=== PATIENT | female | born 1945 | race Caucasian/White ===

== ENCOUNTER 2016-10-12 21:53 | Emergency (ER) | payer MEDICARE, OTHER ==
[~2016-10-12] VITALS: Ht 167.6 cm; Wt 51.3 kg
[~2016-10-12 21:53] MED LIST: ESTR1 PO; LEVO50TA4 PO; LEVO75TA3 PO; METH4TAB6 PO
[2016-10-12 21:55] VITALS: BP 165/72; PULSE 81; RESP 16; TEMP 97.8; O2SAT 96
[2016-10-12] MEDS ORDERED: HYDROCORTISONE SOD SUCCINATE 100 MG VIAL IV PUSH ONE (22:30)
[2016-10-12 23:03] LABS: AUTOMATED NEUTROPHIL # 10.7 TH/MM3 (1.8-7.7); BASOPHIL % 0.4 % (0.0-2.0); EOSINOPHIL # 0.1 TH/MM3 (0-0.4); EOSINOPHIL % 0.5 % (0.0-4.0); HEMATOCRIT 42.9 % (35.0-46.0); HEMO FLAGS DIFF FINAL; MEAN CELL VOLUME 90.4 FL (80.0-100.0); MEAN CORPUSCULAR HEMOGLOBIN 30.9 PG (27.0-34.0); MEAN CORPUSCULAR HGB CONC 34.2 % (32.0-36.0); MONO % 2.8 % (0.0-8.0); NEUT % 88.3 % (16.0-70.0); PLATELET COUNT 368 TH/MM3 (150-450); RED BLOOD COUNT 4.75 MIL/MM3 (4.00-5.30); RED CELL DISTRIBUTION WIDTH 12.6 % (11.6-17.2); WHITE BLOOD COUNT 12.1 TH/MM3 (4.0-11.0)
--- NOTE | 2016-10-12 23:04 | PD ---
HPI . Adrenal crisis Chief Complaint: Abnormal Results Time Seen by Provider: 22:22 Travel History International Travel<30 days: No Contact w/Intl Traveler<30days: No Traveled to known affect area: No History of Present Illness HPI The patient presents with the chief complaint of adrenal crisis. She states that she's been feeling poorly for about a year. She states that she saw her primary care provider today diagnosed adrenal crisis and gave her a Medrol Dosepak. She is supposed to start the Medrol Dosepak tomorrow. She states she was feeling so poorly tonight she decided to come to the emergency department. She states that she was told that she could come here and get a shot. The patient reports that she feels weak and dizzy. She has tingling in her hands and feet. She has "internal shakes." PFSH Past Medical History Arthritis: Yes Diminished Hearing: No Thyroid Disease: Yes (hypo) Influenza Vaccination: Yes ?: Not : 0 Past Surgical History Hysterectomy: Yes Tonsillectomy: Yes Social History Alcohol Use: No Tobacco Use: No (QUIT 1986) Substance Use: No Allergies-Medications (Allergen,Severity, Reaction): Coded Allergies: Codeine (Verified Allergy, Severe, Nausea/Vomiting, 10/12/16) Levaquin (Verified Allergy, Unknown, unknown, 12/17/15) Reported Meds & Prescriptions Reported Meds & Active Scripts Active Reported Levothyroxine 75 mcg (Levothyroxine Sodium) 75 Mcg Tab 75 Mcg PO MON, TUE, TUE Levothyroxine 50 mcg (Levothyroxine Sodium) 50 Mcg Tab 50 Mcg PO ,,TUE Estrace (Estradiol) 1 Mg Tab 1 Mg PO DAILY Medrol 4 Mg Tab (Methylprednisolone) 4 Mg Tab 4 Mg PO DAILY Review of Systems Except as stated in HPI: all other systems reviewed are Neg General / Constitutional: No: Fever, Chills Neurologic: Positive: Weakness, Paresthesia Psychiatric: Positive: Anxiety Physical Exam Narrative GENERAL: Awake and alert and in no acute distress. SKIN: Warm and dry. HEAD: Atraumatic. Normocephalic. EYES: Pupils equal and round. Extraocular movements are intact. ENT: No nasal bleeding or discharge. Mucous membranes pink and moist. NECK: Trachea midline. Neck is supple. CARDIOVASCULAR: Regular rate and rhythm. Heart sounds are normal. RESPIRATORY: No accessory muscle use. GASTROINTESTINAL: Abdomen soft, non-tender, nondistended. MUSCULOSKELETAL: No obvious deformities. No edema. NEUROLOGICAL: Awake and alert. No obvious cranial nerve deficits. Motor grossly within normal limits. Normal speech. PSYCHIATRIC: Appropriate mood and affect; insight and judgment poor. Data Data Last Documented VS Vital Signs Date Time Temp Pulse Resp B/P Pulse Ox O2 Delivery O2 Flow Rate FiO2 10/12/16 21:55 97.8 81 16 165/72 96 Orders Complete Blood Count With Diff (10/12/16 22:22) Basic Metabolic Panel (Bmp) (10/12/16 22:22) ^ Saline Lock (10/12/16 22:22) Hydrocortisone Inj (Solucortef Inj) (10/12/16 22:30) Labs Laboratory Tests Test 10/12/16 22:50 White Blood Count 12.1 TH/MM3 Red Blood Count 4.75 MIL/MM3 Hemoglobin 14.7 GM/DL Hematocrit 42.9 % Mean Corpuscular Volume 90.4 FL Mean Corpuscular Hemoglobin 30.9 PG Mean Corpuscular Hemoglobin 34.2 % Concent Red Cell Distribution Width 12.6 % Platelet Count 368 TH/MM3 Mean Platelet Volume 7.3 FL Neutrophils (%) (Auto) 88.3 % Lymphocytes (%) (Auto) 8.0 % Monocytes (%) (Auto) 2.8 % Eosinophils (%) (Auto) 0.5 % Basophils (%) (Auto) 0.4 % Neutrophils # (Auto) 10.7 TH/MM3 Lymphocytes # (Auto) 1.0 TH/MM3 Monocytes # (Auto) 0.3 TH/MM3 Eosinophils # (Auto) 0.1 TH/MM3 Basophils # (Auto) 0.0 TH/MM3 CBC Comment DIFF FINAL Differential Comment Sodium Level 142 MEQ/L Potassium Level 3.8 MEQ/L Chloride Level 106 MEQ/L Carbon Dioxide Level 29.5 MEQ/L Anion Gap 7 MEQ/L Blood Urea Nitrogen 18 MG/DL Creatinine 0.89 MG/DL Estimat Glomerular Filtration 63 ML/MIN Rate Random Glucose 124 MG/DL Calcium Level 8.9 MG/DL [facility] Medical Decision Making Medical Screen Exam Complete: Yes Emergency Medical Condition: Yes Differential Diagnosis Differential diagnosis of weakness includes but is not limited to infection, CVA , electrolyte disturbance, renal failure, hypoglycemia, UTI, ACS, acute blood loss Narrative Course The patient presents complaining with weakness. She believes that it is secondary to adrenal crisis. I have ordered a dose of Solu-Cortef for her. Myself and the patient's nurse were tied up with the patient having an acute IA. The patient was somewhat disgruntled that she had not yet received her medication and that it might be a little while before the nurse gets to her to give her medication. CBC & BMP Diagram 10/12/16 22:50 Diagnosis Primary Impression: Weakness Disposition: 01 DISCHARGE HOME Condition: Stable Shakira Tariq MD Oct 12, 2016 23:04
[2016-10-12 23:12] LABS: POTASSIUM 3.8 MEQ/L (3.5-5.1)
[2016-10-12 23:16] LABS: BICARBONATE 29.5 MEQ/L (21.0-32.0)
[2016-10-13] MEDS ORDERED: LEVO75TA3 PO (00:24)
[2016-10-13] MEDS ORDERED: LEVO50TA4 PO (00:24)
[2016-10-13] MEDS ORDERED: MEDR4TAB PO (00:24)
[2016-10-13] MEDS ORDERED: ESTR1TAB PO (00:24)
[2016-10-13 00:30] VITALS: BP 166/77; PULSE 73; RESP 16; O2SAT 96
== END 2016-10-13 01:09 | disposition home or self-care (01) ==
LOC: PHED 21:53
DX: R53.1 Weakness (principal); R42 Dizziness and giddiness; R20.2 Paresthesia of skin; E07.9 Disorder of thyroid, unspecified; Z87.39 Personal history of other diseases of the musculoskeletal system and connective tissue
CPT/HCPCS: 80048; 85025; 96374; 99284; J1720